=== PATIENT | male | born 1930 | race Caucasian/White ===

== ENCOUNTER → 2016-05-15 | Outpatient (REF) | payer MEDICARE ==
[~2016-05-15] MED LIST: /TAMS4CA; CARV3.12 PO; DEMA20TA; FURO40TA2 PO; LISI-542 PO; PLAV75TA PO; RANI300T PO; SIMV40TA2 PO; SPIR25TA2 PO; TENO25TA; THERGRAN; VICO5TAB; ZOCO40TA
== END | disposition home or self-care (01) ==
LOC: M LABDRWAD 12:22
PROVIDERS: ATTEND Nurse Practitioner Family
DX: I10 Essential (primary) hypertension (principal); N39.0 Urinary tract infection, site not specified

== ENCOUNTER → 2016-05-30 | Outpatient (REF) | payer MEDICARE ==
[~2016-05-30] MED LIST changes: -PLAV75TA PO; +PLAV75TA38 PO
[2016-05-30 13:01] LABS: CALCIUM LEVEL 8.7 MG/DL (8.8-10.2); CREATININE FOR GFR 2.57 MG/DL (0.70-1.30); GLOMERULAR FILTRATION RATE 25.3 (>35)
== END | disposition home or self-care (01) ==
LOC: M LABDRWAD 12:10
PROVIDERS: ATTEND Nurse Practitioner Family
DX: I10 Essential (primary) hypertension (principal)

== ENCOUNTER → 2016-06-06 | Outpatient (REF) | payer MEDICARE ==
[2016-06-06 21:09] LABS: CALCIUM LEVEL 8.9 MG/DL (8.8-10.2); CREATININE FOR GFR 2.06 MG/DL (0.70-1.30); GLOMERULAR FILTRATION RATE 32.6 (>35); POTASSIUM SERUM 5.1 MEQ/L (3.5-5.1)
== END | disposition home or self-care (01) ==
LOC: M LABDRWAD 20:34
PROVIDERS: ATTEND Nurse Practitioner Family
DX: I10 Essential (primary) hypertension (principal)

== ENCOUNTER → 2016-06-27 | Outpatient (REF) | payer MEDICARE ==
[2016-06-27 20:28] LABS: CALCIUM LEVEL 8.4 MG/DL (8.8-10.2); CREATININE FOR GFR 1.57 MG/DL (0.70-1.30); GLOMERULAR FILTRATION RATE 44.6 (>35); POTASSIUM SERUM 4.2 MEQ/L (3.5-5.1)
== END ==
LOC: M LABDRWAD 09:02
PROVIDERS: ATTEND Nurse Practitioner Family
DX: I10 Essential (primary) hypertension (principal)

== ENCOUNTER → 2016-08-22 | Outpatient (REF) | payer MEDICARE ==
[2016-08-22 13:00] LABS: BASO % 0.7 % (0.0-1.0); EOS # 0.2 K/mm3 (0.0-0.50); EOS % 4.7 % (0.0-3.0); LARGE UNSTAINED CELL # 0.2 K/mm3 (0.0-0.4); LARGE UNSTAINED CELL % 3.5 % (0.0-4.0); LYMPH # 0.9 K/mm3 (1.5-4.5); LYMPH % 13.1 % (24.0-44.0); MEAN CORPUSCULAR HEMOGLOBIN 31.6 pg (27.0-33.0); MEAN CORPUSCULAR HGB CONC 32.7 g/dl (32.0-36.5); MEAN CORPUSCULAR VOLUME 96.5 fl (80.0-96.0); MONO # 0.4 K/mm3 (0.0-0.8); MONO % 8.2 % (0.0-5.0); NEUTROPHILS # 3.7 K/mm3 (1.8-7.7); NEUTROPHILS % 69.8 % (36.0-66.0); PLATELET COUNT, AUTOMATED 202 k/mm3 (150-450); RED CELL DISTRIBUTION WIDTH 13.4 % (11.5-14.5); WHITE BLOOD COUNT 5.4 K/mm3 (4.0-10.0)
[2016-08-22 13:14] LABS: CREATININE FOR GFR 1.53 MG/DL (0.70-1.30); POTASSIUM SERUM 4.7 MEQ/L (3.5-5.1)
[2016-08-23 14:26] LABS: PSA TOTAL 1.1 ng/mL (0.0-4.0)
== END ==
LOC: M LABDRWAD 12:28
PROVIDERS: ATTEND Nurse Practitioner Family
DX: I10 Essential (primary) hypertension (principal); R97.20 Elevated prostate specific antigen [PSA]

== ENCOUNTER 2016-10-03 02:36 | Inpatient (IN) | payer MEDICARE ==
[2016-10-03] VITALS (18 sets, daily range): BP systolic 70–124; BP diastolic 45–77
[~2016-10-03] VITALS: Ht 170.2 cm; Wt 90.8 kg
[2016-10-03] MEDS ORDERED: ACETAMINOPHEN TAB 650MG DOSE (2X325MG) PO ONE (03:45)
[2016-10-03 03:48] LABS: BASO % 0.4 % (0.0-1.0); EOS # 0.2 K/mm3 (0.0-0.50); EOS % 1.9 % (0.0-3.0); LARGE UNSTAINED CELL # 0.1 K/mm3 (0.0-0.4); LARGE UNSTAINED CELL % 0.7 % (0.0-4.0); LYMPH # 0.4 K/mm3 (1.5-4.5); LYMPH % 4.5 % (24.0-44.0); MEAN CORPUSCULAR HEMOGLOBIN 31.7 pg (27.0-33.0); MEAN CORPUSCULAR HGB CONC 32.4 g/dl (32.0-36.5); MEAN CORPUSCULAR VOLUME 97.9 fl (80.0-96.0); MONO # 0.3 K/mm3 (0.0-0.8); MONO % 4.2 % (0.0-5.0); NEUTROPHILS # 7.3 K/mm3 (1.8-7.7); NEUTROPHILS % 88.3 % (36.0-66.0); PLATELET COUNT, AUTOMATED 186 k/mm3 (150-450); RED CELL DISTRIBUTION WIDTH 12.7 % (11.5-14.5); WHITE BLOOD COUNT 8.2 K/mm3 (4.0-10.0)
[2016-10-03 03:49] LABS: VENOUS BASE EXCESS 1.2 (-2.0-2.0); VENOUS O2 SATURATION 50.2 % (60.0-80.0); VENOUS PARTIAL PRESSURE CO2 49.5 mmHg (38.0-50.0); VENOUS PARTIAL PRESSURE O2 27.8 mmHg (30.0-50.0); VENOUS STANDARD HCO3 24.6 MEQ/L; VENOUS TOTAL CO2 28.7 MEQ/L (24.0-28.0)
[2016-10-03 04:04] LABS: ALBUMIN 3.5 GM/DL (3.2-5.2); BILIRUBIN,DIRECT 0.1 MG/DL (0.0-0.2); BILIRUBIN,TOTAL 0.3 MG/DL (0.2-1.0); CALCIUM LEVEL 8.3 MG/DL (8.8-10.2); CREATININE FOR GFR 1.44 MG/DL (0.70-1.30); GLOMERULAR FILTRATION RATE 49.3 (>35); POTASSIUM SERUM 4.7 MEQ/L (3.5-5.1)
[2016-10-03] MEDS ORDERED: PIPERACILLIN/TAZOBACTAM SOD 3.375 GM in D5W MINI-BAG PLUS 50 ML IV ONE (04:15)
[2016-10-03] MEDS ORDERED: ASPIRIN 325 MG TAB PO ONE (06:30)
--- NOTE | 2016-10-03 07:21 | HPE ---
DATE OF ADMISSION: 10/03/2016 PRIMARY CARE PROVIDER: FRANDY Hinojosa REASON FOR ADMISSION: Urinary tract infection (UTI), sepsis. HISTORY OF PRESENT ILLNESS: Patient is an 86-year-old male with past medical history significant for history of urinary tract infections, bladder cancer, presented to the emergency room with his daughter after he called her around 2:00 a.m. stating he felt cold, shaky and short of breath. Upon presentation, patient was found to have a fever as high as 103.5. Per the daughter, patient has history of urinary tract infections and he is usually aware that he has a urinary tract infection. He stated he has not been taking his Lasix because he stated it has been making him urinate frequently, but once she came to see him he was not short of breath but he was shaking and had a fever. She brought him into the emergency room. She also noted that he had a cut on his left leg that he had failed to tell her about. Patient denies any other symptoms at this time. Denies any chest pain. Denies any cough, nausea or vomiting. Denies any diarrhea. Denies any incontinence but does complain of urinary frequency. Patient is alert and oriented to place and self but not to time. Per the daughter, patient is normally awake, alert, oriented times three, lives independently and drives. REVIEW OF SYSTEMS: 12-point review of system was obtained, all which was negative except for those mentioned above. PAST MEDICAL HISTORY: Significant for history of urinary tract infection, bladder cancer, cardiac stents, CAD, hypertension, hyperlipidemia, congestive heart failure, sleep apnea on continuous positive airway pressure (CPAP), gastroesophageal reflux disease (GERD), history of colon cancer and left lymphedema. PAST SURGICAL HISTORY: Significant for hernia repair, partial colectomy and bladder cancer. ALLERGIES: None. SOCIAL HISTORY: Patient used to smoke but quit 40 years ago. Lives alone. Denies any alcohol use. FAMILY HISTORY: Noncontributory. HOME MEDICATIONS: Include: - carvedilol 3.125 mg by mouth twice a day - Plavix 75 mg by mouth daily - Lasix 40 mg by mouth daily - ranitidine one tablet by mouth at bedtime - simvastatin 40 mg at bedtime - spironolactone 12.5 mg by mouth daily PHYSICAL FINDINGS: Vital signs on admission: Temperature 103.5, heart rate 106, blood pressure is 121/55, pulse oximetry 94% on room air. HEENT: Pupils equal, round, reactive to light and accommodation. Neck: Supple. No jugular venous distention (JVD). Lungs: Clear to auscultation (CTA) bilaterally. Abdomen: Obese, soft, nontender, nondistended. Extremities: Swelling over the left lower extremity with an open sore non-draining at this time. Neurologic: Cranial nerves II-XII grossly intact. LABORATORY FINDINGS: WBC 8.2, hemoglobin 10.7, hematocrit 33, platelet count 186. Sodium 144, potassium 4.7, chloride 108, BUN 24, creatinine 1.44, fasting glucose 100, lactic acid 1, AST 16, ALT 17, alkaline phosphatase 125, BNP 88. Blood gas 7.3 pH. Urinalysis appeared turbid with 1+ blood, positive nitrates, too many to count WBCs, 3+ bacteria, 3+ leukocyte esterase. ASSESSMENT AND PLAN: 1. Sepsis secondary to urinary tract infection, abnormal urinalysis (UA). Patient received one dose of Zosyn in the emergency room. We will resume Zosyn. Await urine culture. Vitals are currently stable. Patient is tachycardiac with a fever as high as 103.5. Blood cultures times two sets have also been ordered in the emergency room. Lactic acid was negative. Will continue to monitor. 2. History of coronary artery disease. We will hold patient's antihypertensive medications at this time due to sepsis. We will continue to monitor. 3. Hypertension. We will hold patient's medication. 4. Hyperlipidemia. We will continue patient's simvastatin 40 mg by mouth daily. 5. History of congestive heart failure. Patient has been noncompliant with his Lasix and spironolactone stating he has been urinating frequently, which is likely secondary to urinary tract infection. We will not continue Lasix and spironolactone at this time due to hypotension secondary to sepsis. We will hold off on IV fluids as well. We will continue patient's diuretics when he is more hemodynamically stable. 6. History of sleep apnea. Will continue patient on CPAP, currently does not have his home CPAP machine and we will provide one from the hospital. 7. History of lymphedema on the left. Per daughter, patient always has left lower extremity swelling but has gotten progressively worse since he has not been taking his diuretics. 8. Lower extremity sore and ulceration. Per daughter, patient had a fall recently and had cut his leg but did not mention it to her. 9. Deep venous thrombosis (DVT) prophylaxis. Lovenox renal dose subcutaneously daily.
[2016-10-03] MEDS ORDERED: CEFTAROLINE FOSAMIL 600 MG in D5W MINI-BAG PLUS 50 ML IV SCH (07:45)
--- NOTE | 2016-10-03 07:51 | REP ---
Clinical: S I R S. Comparison: 11/26/2014. Findings: Mediastinum and cardiac silhouette are stable with cardiomegaly again suggested. Diffuse chronic interstitial changes are appreciated. Subtle superimposed atelectasis and/or vascular congestion cannot be excluded. No effusion. No pneumothorax. Skeletal structures intact. Impression: Limited portable examination demonstrates chronic stable changes. Subtle superimposed process cannot be excluded. Signed by Jerry Villasenor MD 10/03/2016 07:43 A
[2016-10-03 09:25] LABS: MEAN CORPUSCULAR HGB CONC 34.2 g/dl (32.0-36.5); MEAN CORPUSCULAR VOLUME 96.5 fl (80.0-96.0); PLATELET COUNT, AUTOMATED 184 k/mm3 (150-450); RED CELL DISTRIBUTION WIDTH 12.9 % (11.5-14.5); WHITE BLOOD COUNT 13.8 K/mm3 (4.0-10.0)
[2016-10-03] MEDS ORDERED: SODIUM CHLORIDE 0.9% 1000 ML IV ONE (09:45)
[2016-10-03] MEDS: CLOPIDOGREL 75 MG TAB PO SCH (09:50)
[2016-10-03] MEDS: ENOXAPARIN 30 MG/0.3 ML SYR (J1650) SC SCH (09:50)
[2016-10-03 09:51] LABS: ALBUMIN 3.4 GM/DL (3.2-5.2); ALBUMIN/GLOBULIN RATIO 1.06 (1.00-1.93); BANDS 2 % (< 11); BILIRUBIN,TOTAL 0.6 MG/DL (0.2-1.0); CALCIUM LEVEL 8.6 MG/DL (8.8-10.2); CREATININE FOR GFR 1.61 MG/DL (0.70-1.30); GLOMERULAR FILTRATION RATE 43.3 (>35); POTASSIUM SERUM 3.9 MEQ/L (3.5-5.1); TOTAL PROTEIN 6.6 GM/DL (6.4-8.2)
[2016-10-03] MEDS: NS 1,000 ML IV SCH (09:52)
[2016-10-03] MEDS ORDERED: CEFTAROLINE FOSAMIL 400 MG in D5W MINI-BAG PLUS 50 ML IV SCH (10:00)
[2016-10-03] MEDS: PIPERACILLIN/TAZOBACTAM SOD 3.375 GM in D5W MINI-BAG PLUS 50 ML IV SCH ×2 (12:00→20:43)
--- NOTE | 2016-10-03 12:53 | REP ---
Clinical: Edema . Technique: Yung scale and color Doppler evaluation using linear high frequency transducer. Findings: Ultrasound examination of the left lower extremity deep venous structures from the common femoral vein to the popliteal vein demonstrates normal compressibility flow and wave patterns in response to respiration and augmentation. There is no evidence for deep venous thrombosis. Subcutaneous edema is appreciated along with left inguinal lymph node measuring 19 x 12 x 18 mm and small subcutaneous fluid collection in the posterior knee measuring 9 x 6 x 6 mm. A Akbar's cyst measuring 6.3 x 1.9 x 3.1 cm is identified in the popliteal fossa. Impression: 1. No evidence for deep venous thrombosis. 2. Subcutaneous edema and small superficial fluid collection measuring 9 x 6 x 6 mm. 3. Akbar's cyst measuring 6.3 x 1.9 x 3.1 cm. Signed by Jerry Villasenor MD 10/03/2016 12:45 P
[2016-10-03] MEDS: ACETAMINOPHEN TAB 650MG DOSE (2X325MG) PO PRN (15:40)
--- NOTE | 2016-10-03 16:42 | PHACANCOPD ---
PHARMACY VANCOMYCIN DOSING Pt Demographics Demographics Patient Age:86 , Weight:92.900 , Gender: male Adjusted Body Weight Events Past 24 Hours Events Past 24 Hours: NO: Dialysis, Diuretic Therapy, Change in CrCl, Fever, Elevation in WBC, Pending Diagnostics, Pending Procedures, Other Vancomycin Vancomycin Target Ranges: 15-20 mcg/ml Vancomycin Load Y/N: Yes Load Dose Date Time Vancomycin Load Dose: 1.5G Date: 10/03/16 Time: 17:00 Vancomycin Dose Date: 10/04/16. Current Vancomycin Dose: [1GM IV Q24H (8AM)] Intermittent Dosing?: No Labs Labs Laboratory Tests 10/03/16 08:46 Red Blood Count 3.26 L, Mean Corpuscular Volume 96.5 H, Mean Corpuscular Hemoglobin 33.0, Mean Corpuscular Hemoglobin Concent 34.2, Red Cell Distribution Width 12.9, Calcium Level 8.6 L, Aspartate Amino Transf (AST/SGOT) 14 L, Alanine Aminotransferase (ALT/SGPT) 16, Alkaline Phosphatase 98, Total Bilirubin 0.6 #, Total Protein 6.6, Albumin 3.4 Micro Microbiology 10/03/16 Blood Culture, Received Pending 10/03/16 Blood Culture - Preliminary, Resulted 10/03/16 Urine Culture, Received Pending Creatinine Clearance Date:10/03/16. Creatinine Clearance: [40ml/min]. Assessment and Plan Maintaining Current Dose?: Yes Reason for dose change: No Dose Change Pharmacist Note Pharmacist Note Date: 10/03/16. Pharm.D. note: 86YO MALE, 92KG in WEIGHT, 67" in HEIGHT ADMITTED WITH UROSEPSIS. C&S PRELIM INDICATES GRAM + cocci in CHAINS. CURRENTLY ON ZOSYN 3.375GM IV Q8H 12N 20:00 & 04:00. WE WILL GIVE HIM A VANCO 1.5GM LOAD AT 17:00 TODAY FOLLOWED BY 1GM VANCO IV Q24H STARTING 8AM 10/04/16. A VANCO TROUGH WILL BE ORDERED WHEN HE IS AT STEADY STATE. MISTI, Pharm.D. [facility] October 03, 2016 16:42
[2016-10-03] MEDS ORDERED: VANCOMYCIN HCL 1,000 MG, VIAL MATE ADAPTER 1 EACH in D5W 250 ML IV ONE (17:00)
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
[2016-10-03] MEDS ORDERED: VANCOMYCIN HCL 500 MG in D5W MINI-BAG PLUS 100 ML IV ONE (18:00)
[2016-10-03] MEDS: SIMVASTATIN 40 MG TAB PO SCH (20:44)
[2016-10-04] VITALS (24 sets, daily range): BP systolic 95–168; BP diastolic 52–79
[2016-10-04] MEDS: ACETAMINOPHEN TAB 650MG DOSE (2X325MG) PO PRN ×2 (01:44→19:34)
[2016-10-04 04:48] LABS: MEAN CORPUSCULAR HEMOGLOBIN 32.3 pg (27.0-33.0); MEAN CORPUSCULAR HGB CONC 33.2 g/dl (32.0-36.5); MEAN CORPUSCULAR VOLUME 97.2 fl (80.0-96.0); RED CELL DISTRIBUTION WIDTH 13.4 % (11.5-14.5); WHITE BLOOD COUNT 10.6 K/mm3 (4.0-10.0)
[2016-10-04] MEDS: PIPERACILLIN/TAZOBACTAM SOD 3.375 GM in D5W MINI-BAG PLUS 50 ML IV SCH ×3 (04:55→19:34)
[2016-10-04] MEDS: NS 1,000 ML IV SCH (04:55)
[2016-10-04 05:14] LABS: BILIRUBIN,TOTAL 0.5 MG/DL (0.2-1.0); CALCIUM LEVEL 7.9 MG/DL (8.8-10.2); CREATININE FOR GFR 1.81 MG/DL (0.70-1.30); GLOMERULAR FILTRATION RATE 37.9 (>35); POTASSIUM SERUM 3.9 MEQ/L (3.5-5.1); TOTAL PROTEIN 5.7 GM/DL (6.4-8.2)
[2016-10-04 05:34] LABS: ALBUMIN/GLOBULIN RATIO 0.78 (1.00-1.93)
[2016-10-04 05:35] LABS: ALBUMIN 2.5 GM/DL (3.2-5.2)
[2016-10-04] MEDS ORDERED: VANCOMYCIN HCL 1,000 MG, VIAL MATE ADAPTER 1 EACH in D5W 250 ML IV SCH (08:00)
[2016-10-04] MEDS: ENOXAPARIN 30 MG/0.3 ML SYR (J1650) SC SCH (08:36)
[2016-10-04] MEDS: CLOPIDOGREL 75 MG TAB PO SCH (08:36)
--- NOTE | 2016-10-04 09:54 | PHACANCOPD ---
PHARMACY VANCOMYCIN DOSING Pt Demographics Demographics Patient Age:86 , Weight:95.500 , Gender: male Adjusted Body Weight Vancomycin Vancomycin Target Ranges: 15-20 mcg/ml Vancomycin Load Y/N: Yes Load Dose Date Time Vancomycin Load Dose: 1.5G Date: 10/03/16 Time: 17:00 Vancomycin Dose Date: 10/04/16. Current Vancomycin Dose: [1GM IV Q24H (8AM)] Intermittent Dosing?: No Labs Micro Microbiology 10/03/16 Blood Culture - Preliminary, Resulted 10/03/16 Blood Culture - Preliminary, Resulted 10/03/16 Urine Culture, Received Pending Creatinine Clearance Date:10/03/16. Creatinine Clearance: [40ml/min]. Assessment and Plan Maintaining Current Dose?: Yes Reason for dose change: No Dose Change Pharmacist Note Pharmacist Note 10/04/16: Scr today is 1.81. We will continue to maintain the current regimen of 1g IV Q24H. A vancomycin trough has been scheduled 10/06/16 @0700. We will continue to monitor and make adjustments accordingly. Date: 10/03/16. Pharm.D. note: 86YO MALE, 92KG in WEIGHT, 67" in HEIGHT ADMITTED WITH UROSEPSIS. C&S PRELIM INDICATES GRAM + cocci in CHAINS. CURRENTLY ON ZOSYN 3.375GM IV Q8H 12N 20:00 & 04:00. WE WILL GIVE HIM A VANCO 1.5GM LOAD AT 17:00 TODAY FOLLOWED BY 1GM VANCO IV Q24H STARTING 8AM 10/04/16. A VANCO TROUGH WILL BE ORDERED WHEN HE IS AT STEADY STATE. MISTI, Pharm.D. [facility] October 04, 2016 09:54
--- NOTE | 2016-10-04 14:49 | REP ---
Clinical: Trauma. Technique: Real time saul scale ultrasound examination using curved array transducer. Comparison: CT dated 06/23/2009. Findings: The bilateral kidneys demonstrate numerous cysts but are otherwise essentially normal in contour, size, echogenicity and overall reniform shape. There is no evidence for hydronephrosis, nephrolithiasis or mass lesion. No perinephric fluid collection is appreciated and there is no evidence for renal injury. Right kidney measures 11.0 x 5.6 x 6.3 cm and includes mid pole cyst measuring 2.1 cm maximal diameter and lower pole cyst measuring 5.5 cm maximal diameter. Left kidney measures 12.1 x 4.6 x 5.8 cm and includes lateral mid pole cyst measuring 3.7 cm maximal diameter and lower pole cyst measuring 1.0 cm maximal diameter. Bladder is grossly unremarkable with small amount of layering debris noted. Impression: Kidneys demonstrate few scattered bilateral cysts without evidence for renal trauma. Signed by Jerry Villasenor MD 10/04/2016 02:40 P
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
[2016-10-04] MEDS: SIMVASTATIN 40 MG TAB PO SCH (20:19)
[2016-10-05] VITALS: BP 129/67
[2016-10-05 04:00] VITALS: BP 121/56
[2016-10-05] MEDS: PIPERACILLIN/TAZOBACTAM SOD 3.375 GM in D5W MINI-BAG PLUS 50 ML IV SCH (04:48)
[2016-10-05 05:38] LABS: MEAN CORPUSCULAR HEMOGLOBIN 32.3 pg (27.0-33.0); MEAN CORPUSCULAR HGB CONC 33.5 g/dl (32.0-36.5); MEAN CORPUSCULAR VOLUME 96.6 fl (80.0-96.0); WHITE BLOOD COUNT 11.4 K/mm3 (4.0-10.0)
[2016-10-05 05:54] LABS: ALBUMIN 2.4 GM/DL (3.2-5.2); ALBUMIN/GLOBULIN RATIO 0.69 (1.00-1.93); BILIRUBIN,TOTAL 0.5 MG/DL (0.2-1.0); CALCIUM LEVEL 8.2 MG/DL (8.8-10.2); CREATININE FOR GFR 1.45 MG/DL (0.70-1.30); GLOMERULAR FILTRATION RATE 48.9 (>35); TOTAL PROTEIN 5.9 GM/DL (6.4-8.2)
[2016-10-05 07:40] VITALS: BP 138/73
[2016-10-05] MEDS: cefTRIAXone SOD 2 GM in D5W MINI-BAG PLUS 50 ML IV SCH ×2 (08:21→19:41)
[2016-10-05] MEDS: CLOPIDOGREL 75 MG TAB PO SCH (08:21)
[2016-10-05] MEDS: ENOXAPARIN 30 MG/0.3 ML SYR (J1650) SC SCH (08:22)
[2016-10-05 12:00] VITALS: BP 152/68
[2016-10-05 16:00] VITALS: BP 119/80
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
[2016-10-05 20:10] VITALS: BP 133/59
[2016-10-05] MEDS: SIMVASTATIN 40 MG TAB PO SCH (20:25)
[2016-10-05] MEDS: ACETAMINOPHEN TAB 650MG DOSE (2X325MG) PO PRN (20:27)
[2016-10-06] VITALS (7 sets, daily range): BP systolic 121–163; BP diastolic 58–79
[2016-10-06 07:11] LABS: MEAN CORPUSCULAR HEMOGLOBIN 32.2 pg (27.0-33.0); MEAN CORPUSCULAR HGB CONC 33.4 g/dl (32.0-36.5); MEAN CORPUSCULAR VOLUME 96.3 fl (80.0-96.0); RED CELL DISTRIBUTION WIDTH 13.2 % (11.5-14.5); WHITE BLOOD COUNT 7.3 K/mm3 (4.0-10.0)
[2016-10-06 07:47] LABS: ALBUMIN 2.2 GM/DL (3.2-5.2); ALBUMIN/GLOBULIN RATIO 0.76 (1.00-1.93); ALKALINE PHOSPHATASE 71 U/L (45-117); ALT/SGPT 24 U/L (12-78); ANION GAP 7 MEQ/L (8-16); AST/SGOT 24 U/L (15-37); BILIRUBIN,TOTAL 0.3 MG/DL (0.2-1.0); BLOOD UREA NITROGEN 22 MG/DL (7-18); CALCIUM LEVEL 7.6 MG/DL (8.8-10.2); CARBON DIOXIDE LEVEL 26 MEQ/L (21-32); CHLORIDE LEVEL 104 MEQ/L (98-107); CREATININE FOR GFR 1.07 MG/DL (0.70-1.30); GLOMERULAR FILTRATION RATE > 60.0 (>35); GLUCOSE, FASTING 104 MG/DL (83-110); POTASSIUM SERUM 3.6 MEQ/L (3.5-5.1); SODIUM LEVEL 137 MEQ/L (136-145); TOTAL PROTEIN 5.1 GM/DL (6.4-8.2)
[2016-10-06 08:48] LABS: ABG BASE EXCESS -0.5 (-2.0-2.0); ABG HCO3 23.3 MEQ/L (22.0-26.0); ABG PARTIAL PRESSURE CO2 34.7 mmHg (35.0-45.0); ABG PARTIAL PRESSURE O2 76.9 mmHg (75.0-100.0); ABG TOTAL CO2 24.3 MEQ/L (23.0-31.0); ABG pH (ARTERIAL) 7.444 UNITS (7.350-7.450)
[2016-10-06] MEDS: CLOPIDOGREL 75 MG TAB PO SCH (09:15)
[2016-10-06] MEDS: cefTRIAXone SOD 2 GM in D5W MINI-BAG PLUS 50 ML IV SCH ×2 (09:16→19:58)
[2016-10-06] MEDS: ENOXAPARIN 30 MG/0.3 ML SYR (J1650) SC SCH (09:16)
[2016-10-06] MEDS: ACETAMINOPHEN TAB 650MG DOSE (2X325MG) PO PRN (21:05)
[2016-10-06] MEDS: SIMVASTATIN 40 MG TAB PO SCH (21:05)
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
[2016-10-07 02:00] VITALS: BP 139/67
[2016-10-07 06:00] VITALS: BP 143/68
[2016-10-07 06:12] LABS: MEAN CORPUSCULAR HEMOGLOBIN 31.5 pg (27.0-33.0); MEAN CORPUSCULAR HGB CONC 32.5 g/dl (32.0-36.5); RED CELL DISTRIBUTION WIDTH 12.7 % (11.5-14.5); WHITE BLOOD COUNT 6.2 K/mm3 (4.0-10.0)
[2016-10-07 06:17] LABS: ALBUMIN 2.2 GM/DL (3.2-5.2); ALBUMIN/GLOBULIN RATIO 0.61 (1.00-1.93); ALKALINE PHOSPHATASE 85 U/L (45-117); ALT/SGPT 37 U/L (12-78); ANION GAP 4 MEQ/L (8-16); AST/SGOT 31 U/L (15-37); BILIRUBIN,TOTAL 0.2 MG/DL (0.2-1.0); BLOOD UREA NITROGEN 17 MG/DL (7-18); CALCIUM LEVEL 7.9 MG/DL (8.8-10.2); CARBON DIOXIDE LEVEL 29 MEQ/L (21-32); CHLORIDE LEVEL 106 MEQ/L (98-107); CREATININE FOR GFR 1.02 MG/DL (0.70-1.30); GLOMERULAR FILTRATION RATE > 60.0 (>35); GLUCOSE, FASTING 96 MG/DL (83-110); POTASSIUM SERUM 3.8 MEQ/L (3.5-5.1); SODIUM LEVEL 139 MEQ/L (136-145); TOTAL PROTEIN 5.8 GM/DL (6.4-8.2)
[2016-10-07] MEDS: ENOXAPARIN 30 MG/0.3 ML SYR (J1650) SC SCH (08:24)
[2016-10-07] MEDS: CLOPIDOGREL 75 MG TAB PO SCH (08:24)
[2016-10-07] MEDS: cefTRIAXone SOD 2 GM in D5W MINI-BAG PLUS 50 ML IV SCH ×2 (08:24→20:52)
[2016-10-07 10:00] VITALS: BP 157/75
[2016-10-07 14:00] VITALS: BP 138/75
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
[2016-10-07 18:00] VITALS: BP 146/65
[2016-10-07] MEDS: SIMVASTATIN 40 MG TAB PO SCH (20:52)
[2016-10-07 22:00] VITALS: BP 139/68
[2016-10-08 02:00] VITALS: BP 149/70
[2016-10-08 06:00] VITALS: BP 140/80
[2016-10-08 06:05] LABS: MEAN CORPUSCULAR HEMOGLOBIN 32.2 pg (27.0-33.0); MEAN CORPUSCULAR HGB CONC 33.4 g/dl (32.0-36.5); MEAN CORPUSCULAR VOLUME 96.3 fl (80.0-96.0); RED CELL DISTRIBUTION WIDTH 12.8 % (11.5-14.5); WHITE BLOOD COUNT 7.3 K/mm3 (4.0-10.0)
[2016-10-08 06:27] LABS: ALBUMIN 2.3 GM/DL (3.2-5.2); ALBUMIN/GLOBULIN RATIO 0.61 (1.00-1.93); ALKALINE PHOSPHATASE 95 U/L (45-117); ALT/SGPT 38 U/L (12-78); ANION GAP 7 MEQ/L (8-16); AST/SGOT 26 U/L (15-37); BILIRUBIN,TOTAL 0.2 MG/DL (0.2-1.0); BLOOD UREA NITROGEN 14 MG/DL (7-18); CALCIUM LEVEL 8.3 MG/DL (8.8-10.2); CARBON DIOXIDE LEVEL 27 MEQ/L (21-32); CHLORIDE LEVEL 105 MEQ/L (98-107); CREATININE FOR GFR 0.94 MG/DL (0.70-1.30); GLOMERULAR FILTRATION RATE > 60.0 (>35); GLUCOSE, FASTING 96 MG/DL (83-110); POTASSIUM SERUM 3.8 MEQ/L (3.5-5.1); SODIUM LEVEL 139 MEQ/L (136-145); TOTAL PROTEIN 6.1 GM/DL (6.4-8.2)
[2016-10-08] MEDS: CLOPIDOGREL 75 MG TAB PO SCH (08:29)
[2016-10-08] MEDS: cefTRIAXone SOD 2 GM in D5W MINI-BAG PLUS 50 ML IV SCH ×2 (08:29→20:01)
[2016-10-08 10:00] VITALS: BP 141/65
[2016-10-08] MEDS: ENOXAPARIN 30 MG/0.3 ML SYR (J1650) SC SCH (11:10)
[2016-10-08] MEDS: FUROSEMIDE 40 MG TAB PO SCH (11:10)
[2016-10-08] MEDS: SPIRONOLACTONE 12.5MG PER 1/2 TABLET PO SCH (11:10)
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
[2016-10-08 14:00] VITALS: BP 129/74
[2016-10-08 18:00] VITALS: BP 130/80
[2016-10-08] MEDS: SIMVASTATIN 40 MG TAB PO SCH (20:01)
[2016-10-08 22:00] VITALS: BP 139/68
[2016-10-09 02:00] VITALS: BP 146/79
[2016-10-09 05:39] LABS: MEAN CORPUSCULAR HEMOGLOBIN 32.2 pg (27.0-33.0); MEAN CORPUSCULAR HGB CONC 33.4 g/dl (32.0-36.5); MEAN CORPUSCULAR VOLUME 96.4 fl (80.0-96.0); RED CELL DISTRIBUTION WIDTH 13.1 % (11.5-14.5); WHITE BLOOD COUNT 8.7 K/mm3 (4.0-10.0)
[2016-10-09 05:52] LABS: ALBUMIN 2.5 GM/DL (3.2-5.2); ALBUMIN/GLOBULIN RATIO 0.61 (1.00-1.93); ALKALINE PHOSPHATASE 104 U/L (45-117); ALT/SGPT 38 U/L (12-78); ANION GAP 5 MEQ/L (8-16); AST/SGOT 21 U/L (15-37); BILIRUBIN,TOTAL 0.3 MG/DL (0.2-1.0); BLOOD UREA NITROGEN 14 MG/DL (7-18); CALCIUM LEVEL 8.5 MG/DL (8.8-10.2); CARBON DIOXIDE LEVEL 29 MEQ/L (21-32); CHLORIDE LEVEL 104 MEQ/L (98-107); GLOMERULAR FILTRATION RATE > 60.0 (>35); GLUCOSE, FASTING 93 MG/DL (83-110); POTASSIUM SERUM 3.9 MEQ/L (3.5-5.1); SODIUM LEVEL 138 MEQ/L (136-145); TOTAL PROTEIN 6.6 GM/DL (6.4-8.2)
[2016-10-09 06:00] VITALS: BP 148/73
[2016-10-09] MEDS: SPIRONOLACTONE 12.5MG PER 1/2 TABLET PO SCH (09:14)
[2016-10-09] MEDS: cefTRIAXone SOD 2 GM in D5W MINI-BAG PLUS 50 ML IV SCH ×2 (09:14→20:05)
[2016-10-09] MEDS: CLOPIDOGREL 75 MG TAB PO SCH (09:14)
[2016-10-09] MEDS: ENOXAPARIN 30 MG/0.3 ML SYR (J1650) SC SCH (09:14)
[2016-10-09] MEDS: FUROSEMIDE 40 MG TAB PO SCH (09:14)
--- NOTE | 2016-10-09 09:48 | REP ---
Bilateral lower extremity Duplex Doppler venous ultrasound: Real time compression and duplex Doppler interrogation of the bilateral lower extremity deep venous system is performed. Bilaterally, the common femoral, superficial femoral and popliteal veins are fully compressible with transducer pressure and demonstrate normal spontaneous and phasic flow, without evidence of deep venous thrombosis. Impression: No evidence of deep venous thrombosis of the bilateral lower extremity femoral popliteal venous system. There is a left popliteal cyst measuring 8.5 x 1.5 x 3.6 cm. There is a mildly enlarged left inguinal lymph node with short axis dimension 1.3 cm. Signed by Marco A Yung MD 10/09/2016 09:40 A
[2016-10-09 10:00] VITALS: BP 162/77
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
[2016-10-09 14:00] VITALS: BP 139/75
[2016-10-09 18:00] VITALS: BP 130/68
[2016-10-09] MEDS: SIMVASTATIN 40 MG TAB PO SCH (20:05)
[2016-10-09 22:00] VITALS: BP 134/71
[2016-10-10 02:00] VITALS: BP 133/63
[2016-10-10 05:53] LABS: MEAN CORPUSCULAR HEMOGLOBIN 31.6 pg (27.0-33.0); MEAN CORPUSCULAR HGB CONC 32.6 g/dl (32.0-36.5); MEAN CORPUSCULAR VOLUME 96.7 fl (80.0-96.0); RED CELL DISTRIBUTION WIDTH 12.9 % (11.5-14.5)
[2016-10-10 06:00] VITALS: BP 130/65
[2016-10-10 06:15] LABS: ALBUMIN 2.4 GM/DL (3.2-5.2); ALKALINE PHOSPHATASE 108 U/L (45-117); ALT/SGPT 32 U/L (12-78); ANION GAP 6 MEQ/L (8-16); AST/SGOT 18 U/L (15-37); BILIRUBIN,TOTAL 0.2 MG/DL (0.2-1.0); BLOOD UREA NITROGEN 21 MG/DL (7-18); CALCIUM LEVEL 8.2 MG/DL (8.8-10.2); CARBON DIOXIDE LEVEL 28 MEQ/L (21-32); CHLORIDE LEVEL 103 MEQ/L (98-107); CREATININE FOR GFR 1.03 MG/DL (0.70-1.30); GLOMERULAR FILTRATION RATE > 60.0 (>35); GLUCOSE, FASTING 95 MG/DL (83-110); POTASSIUM SERUM 3.7 MEQ/L (3.5-5.1); SODIUM LEVEL 137 MEQ/L (136-145); TOTAL PROTEIN 6.4 GM/DL (6.4-8.2)
[2016-10-10] MEDS: cefTRIAXone SOD 2 GM in D5W MINI-BAG PLUS 50 ML IV SCH ×2 (08:38→20:24)
[2016-10-10] MEDS: CLOPIDOGREL 75 MG TAB PO SCH (08:39)
[2016-10-10] MEDS: SPIRONOLACTONE 12.5MG PER 1/2 TABLET PO SCH (08:39)
[2016-10-10] MEDS: FUROSEMIDE 40 MG TAB PO SCH (08:39)
[2016-10-10] MEDS: ENOXAPARIN 30 MG/0.3 ML SYR (J1650) SC SCH (08:39)
[2016-10-10 10:00] VITALS: BP 117/59
[2016-10-10 14:00] VITALS: BP 121/37
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
[2016-10-10 18:00] VITALS: BP 134/81
[2016-10-10] MEDS: SIMVASTATIN 40 MG TAB PO SCH (20:24)
[2016-10-10 22:00] VITALS: BP 134/67
--- NOTE | 2016-10-10 23:25 | ECHO ---
DATE OF PROCEDURE: 10/10/2016 REFERRING PHYSICIAN: David Vila MD INDICATION: Heart failure, unspecified. HEIGHT: 170 cm WEIGHT: 93 kg 2D MEASUREMENTS: Aortic root: 4.0 cm Ventricular septum: 1.32 cm Posterior wall: 1.34 cm Left ventricle diastole: 4.5 cm Left atrium: 4.2 cm LVOT: 2.1 cm Inferior vena cava: 1.8 cm DOPPLER MEASUREMENTS: Aortic valve velocity: 226 cm/s Peak aortic valve gradient: 20 mmHg Mean aortic valve gradient: 10 mmHg LVOT velocity: 85.7 cm/s LVOT VTI: 18.5 cm Trace mitral regurgitation. Mitral E velocity: 63.2 cm/s Mitral A velocity: 93.3 cm/s Very mild tricuspid regurgitation. Estimated right ventricle systolic pressure at least 33 mmHg assuming a right atrial pressure of 5 mmHg. Mild pulmonic regurgitation. Pulmonary artery systolic pressure 28 mmHg by pulmonary acceleration time method. MITRAL ANNULAR TISSUE DOPPLER: E prime septal: 4.8 cm/s E prime lateral: 7.1 cm/s DESCRIPTION: Rhythm was sinus with a few premature ventricular contractions (PVCs) observed. Image quality was fair. No pericardial effusion. This is a 2D, M-mode, color flow Doppler and pulse wave Doppler examination that included mitral annular tissue Doppler. CONCLUSIONS: 1. Mild concentric left ventricle hypertrophy. No left ventricle (LV) regional wall motion abnormalities. Normal LV systolic function. Left ventricular ejection fraction (LVEF) of 70% by visual estimate. Grade 1 LV diastolic dysfunction (impaired relaxation filling pattern). 2. Mild dilatation of the aortic root at the level of the sinus of Valsalva. 3. Mild left atrial dilatation. 4. Degenerative, calcified aortic valve disease with severe focal thickening and focal calcific deposits. Mild reduction of mobility of the aortic cusps. Very mild aortic stenosis. No aortic regurgitation. 5. Moderate mitral annular calcification. No mitral stenosis. Trace mitral regurgitation. 6. Suggestive of mild elevation of estimated right ventricle systolic pressure.
[2016-10-11 02:00] VITALS: BP 124/58
[2016-10-11 06:00] VITALS: BP 130/65
[2016-10-11] MEDS: CLOPIDOGREL 75 MG TAB PO SCH (08:18)
[2016-10-11] MEDS: ENOXAPARIN 30 MG/0.3 ML SYR (J1650) SC SCH (08:18)
[2016-10-11] MEDS: cefTRIAXone SOD 2 GM in D5W MINI-BAG PLUS 50 ML IV SCH (08:18)
[2016-10-11] MEDS: FUROSEMIDE 40 MG TAB PO SCH (08:18)
[2016-10-11] MEDS: SPIRONOLACTONE 12.5MG PER 1/2 TABLET PO SCH (08:20)
[2016-10-11 10:00] VITALS: BP 134/65
[2016-10-11] MEDS ORDERED: BACT800T5 PO (11:34)
--- NOTE | 2016-10-11 14:46 | DS.PDOC ---
Discharge Summary General Date of Admission October 03, 2016 at 04:51 Date of Discharge 10/11/16 Attending Physician: LYNN KAMARA MD Discharge Summary PROCEDURES PERFORMED DURING STAY: None. ADMITTING/DISCHARGE DIAGNOSES: 1. Sepsis/Bacteremia from Strep Group C 2. MALENA, resolved. 3. H/o CAD 4. HTN 5. BRIAN on CPAP 6. H/o bladder/colon ca 7. Chronic lymphedema LLE. COMPLICATIONS/CHIEF COMPLAINT: Sepsis & Uti. HISTORY OF PRESENT ILLNESS/HOSPITAL COURSE: . His 78-year-old male past history of chronic lymphedema left lower extremity, BRIAN on CPAP, hypertension, history of CAD presents with erythema of the left lower extremity and found to have sepsis secondary to cellulitis as well as urinary tract infection. Patient also had acute kidney injury which had resolved with the treatment of his sepsis. Patient was also noted to be bacteremic from the sepsis with blood cultures positive for strep group C, and urine culture positive for Escherichia coli both susceptible to Rocephin. Patient had tolerated antibiotics well with improvements of leukocytosis, CRP, as well as erythema of the left lower extremity. Repeat cultures negative. Patient also worked with physical therapy and did well. DISCHARGE MEDICATIONS: Please see below. ALLERGIES: Please see below. PHYSICAL EXAMINATION ON DISCHARGE: Vitals: (see below) General: No acute distress, laying comfortably in bed. HEENT: Moist mucous membranes. Neck: No JVD or lymphadenopathy Cardiac: RRR, No murmurs Pulm: Clear to auscultation b/l. No wheezing, rhonchi Abd: NT/ND + BS Ext: 1+ pitting edema in the left lower extremity below knee with cellulitis that has continued to improving. No cyanosis. Distal pulses intact. Chronic Lymphedema in the left lower extremity, below knee ? related to akbar's cyst LABORATORY DATA: Please see below. IMAGING: Venous U/S LLE 10/03/16 Impression: 1. No evidence for deep venous thrombosis. 2. Subcutaneous edema and small superficial fluid collection measuring 9 x 6 x 6 mm. 3. Akbar's cyst measuring 6.3 x 1.9 x 3.1 cm. Renal u/s 10/03/16 Findings: The bilateral kidneys demonstrate numerous cysts but are otherwise essentially normal in contour, size, echogenicity and overall reniform shape. There is no evidence for hydronephrosis, nephrolithiasis or mass lesion. No perinephric fluid collection is appreciated and there is no evidence for renal injury. Right kidney measures 11.0 x 5.6 x 6.3 cm and includes mid pole cyst measuring 2.1 cm maximal diameter and lower pole cyst measuring 5.5 cm maximal diameter. Left kidney measures 12.1 x 4.6 x 5.8 cm and includes lateral mid pole cyst measuring 3.7 cm maximal diameter and lower pole cyst measuring 1.0 cm maximal diameter. Bladder is grossly unremarkable with small amount of layering debris noted. Impression: Kidneys demonstrate few scattered bilateral cysts without evidence for renal trauma. CXR 10/03/16 Impression: Limited portable examination demonstrates chronic stable changes. Subtle superimposed process cannot be excluded. PROGNOSIS: Fair ACTIVITY: As tolerated. DIET: Low Na diet DISCHARGE PLAN/DISPOSITION: Home, Self-Care. DISCHARGE INSTRUCTIONS: 1. F/u with PCP in 1-2 weeks. May need drainage of the Akbar cyst once cellulitis improves. DISCHARGE CONDITION: Stable. TIME SPENT ON DISCHARGE: Greater than 30 minutes. Vital Signs/I&Os Vital Signs Date Time Temp Pulse Resp B/P (MAP) Pulse Ox O2 Delivery O2 Flow Rate FiO2 10/11/16 10:00 97.9 86 17 134/65 (88) 95 Room Air I&O- Last 24 Hours up to 6 AM 10/11/16 05:59 Intake Total 1540 ml Output Total 2450 ml Balance -910 ml Microbiology Microbiology 10/09/16 Blood Culture - Preliminary, Resulted No Growth after 48 hours. All Specime... 10/09/16 Blood Culture - Preliminary, Resulted No Growth after 48 hours. All Specime... 10/03/16 Blood Culture - Final, Complete Streptococcus Group C 10/03/16 Blood Culture - Final, Complete Streptococcus Group C 10/03/16 Urine Culture - Final, Complete Escherichia Coli Streptococcus Group C Discharge Medications Scheduled Carvedilol (Carvedilol) 3.125 Mg Tab, 3.125 MG PO BID, (Reported) Clopidogrel Bisulfate (Plavix) 75 Mg Tab, 75 MG PO DAILY, (Reported) Furosemide (Furosemide) 40 Mg Tab, 40 MG PO DAILY, (Reported) Ranitidine HCl (Ranitidine HCl) 300 Mg Tab, 1 TAB PO QHS, (Reported) Simvastatin - High Dose (Simvastatin) 40 Mg Tab, 40 MG PO QHS, (Reported) Spironolactone (Spironolactone) 25 Mg Tab, 12.5 MG PO DAILY, (Reported) Trimethoprim/Sulfamethoxazole (Bactrim Ds 800-160 mg) 1 Tab Tab, 1 TAB PO BID Allergies Coded Allergies: No Known Allergies (Verified , 06/11/03) LYNN KAMARA MD Oct 11, 2016 14:46
== END 2016-10-11 12:51 | disposition home or self-care (01) | DRG 872 ==
LOC: EDBD 02:36 → M ED 04:22 → M ED INP 04:51 → M ICU 05:57 → M PCU 10-04 22:59 → M MSPAV 10-06 16:59
PROVIDERS: ADMIT Internal Medicine; ATTEND Internal Medicine
DX: A40.9 Streptococcal sepsis, unspecified (principal); N39.0 Urinary tract infection, site not specified; L97.929 Non-pressure chronic ulcer of unspecified part of left lower leg with unspecified severity; N17.9 Acute kidney failure, unspecified; L03.116 Cellulitis of left lower limb; I50.9 Heart failure, unspecified; I25.10 Atherosclerotic heart disease of native coronary artery without angina pectoris; I11.0 Hypertensive heart disease with heart failure; R65.20 Severe sepsis without septic shock; E66.9 Obesity, unspecified; E78.5 Hyperlipidemia, unspecified; B96.20 Unspecified Escherichia coli [E. coli] as the cause of diseases classified elsewhere; M71.22 Synovial cyst of popliteal space [Baker], left knee; G47.33 Obstructive sleep apnea (adult) (pediatric); R33.9 Retention of urine, unspecified; K21.9 Gastro-esophageal reflux disease without esophagitis; Z95.5 Presence of coronary angioplasty implant and graft; Z85.51 Personal history of malignant neoplasm of bladder; Z85.038 Personal history of other malignant neoplasm of large intestine; Z90.49 Acquired absence of other specified parts of digestive tract; Z79.02 Long term (current) use of antithrombotics/antiplatelets; Z79.899 Other long term (current) drug therapy; Z87.891 Personal history of nicotine dependence; Z68.32 Body mass index [BMI] 32.0-32.9, adult

== ENCOUNTER → 2016-10-22 | Outpatient (REF) | payer MEDICARE ==
[~2016-10-22] MED LIST changes: +BACT800T5 PO
[2016-10-22 21:18] LABS: BASO % 0.5 % (0.0-1.0); EOS # 0.2 K/mm3 (0.0-0.50); EOS % 2.9 % (0.0-3.0); LARGE UNSTAINED CELL # 0.2 K/mm3 (0.0-0.4); LARGE UNSTAINED CELL % 2.5 % (0.0-4.0); LYMPH # 1.5 K/mm3 (1.5-4.5); LYMPH % 15.7 % (24.0-44.0); MEAN CORPUSCULAR HEMOGLOBIN 32.2 pg (27.0-33.0); MEAN CORPUSCULAR HGB CONC 32.8 g/dl (32.0-36.5); MEAN CORPUSCULAR VOLUME 98.2 fl (80.0-96.0); MONO # 0.4 K/mm3 (0.0-0.8); MONO % 4.8 % (0.0-5.0); NEUTROPHILS # 6.3 K/mm3 (1.8-7.7); NEUTROPHILS % 73.6 % (36.0-66.0); PLATELET COUNT, AUTOMATED 295 k/mm3 (150-450); RED CELL DISTRIBUTION WIDTH 13.1 % (11.5-14.5); WHITE BLOOD COUNT 8.5 K/mm3 (4.0-10.0)
[2016-10-22 21:22] LABS: CALCIUM LEVEL 8.9 MG/DL (8.8-10.2); CREATININE FOR GFR 1.95 MG/DL (0.70-1.30); GLOMERULAR FILTRATION RATE 34.7 (>35); POTASSIUM SERUM 4.9 MEQ/L (3.5-5.1)
== END ==
LOC: M LABDRWAD 20:18
PROVIDERS: ATTEND Nurse Practitioner Family
DX: A41.9 Sepsis, unspecified organism (principal); I10 Essential (primary) hypertension

== ENCOUNTER → 2016-11-28 | Outpatient (REF) | payer MEDICARE ==
[~2016-11-28] MED LIST changes: +PLAV1TAB2 PO; -PLAV75TA38 PO
[2016-11-28 22:25] LABS: CALCIUM LEVEL 8.6 MG/DL (8.8-10.2); CREATININE FOR GFR 1.58 MG/DL (0.70-1.30); GLOMERULAR FILTRATION RATE 44.3 (>35)
== END ==
LOC: M LABDRWAD 09:23
PROVIDERS: ATTEND Nurse Practitioner Family
DX: I10 Essential (primary) hypertension (principal)

== ENCOUNTER → 2016-12-24 | Outpatient (REF) | payer MEDICARE ==
[2016-12-24 22:31] LABS: CALCIUM LEVEL 8.7 MG/DL (8.8-10.2); CREATININE FOR GFR 1.39 MG/DL (0.70-1.30); GLOMERULAR FILTRATION RATE 51.3 (>35); POTASSIUM SERUM 4.8 MEQ/L (3.5-5.1)
== END ==
LOC: M LABDRWAD 22:15
PROVIDERS: ATTEND Nurse Practitioner Family
DX: I10 Essential (primary) hypertension (principal)

== ENCOUNTER → 2017-01-28 | Outpatient (REF) | payer MEDICARE ==
[2017-01-28 13:08] LABS: CALCIUM LEVEL 8.9 MG/DL (8.8-10.2); CREATININE FOR GFR 1.32 MG/DL (0.70-1.30); GLOMERULAR FILTRATION RATE 54.4 (>35); POTASSIUM SERUM 4.9 MEQ/L (3.5-5.1)
== END ==
LOC: M LABDRWAD 12:16
PROVIDERS: ATTEND Nurse Practitioner Family
DX: I10 Essential (primary) hypertension (principal)

== ENCOUNTER → 2017-04-08 | Outpatient (REF) | payer MEDICARE ==
[2017-04-08 13:18] LABS: CALCIUM LEVEL 8.9 MG/DL (8.8-10.2); CREATININE FOR GFR 1.59 MG/DL (0.70-1.30); GLOMERULAR FILTRATION RATE 43.9 (>35); POTASSIUM SERUM 4.7 MEQ/L (3.5-5.1)
== END ==
LOC: M LABDRWAD 12:07
PROVIDERS: ATTEND Nurse Practitioner Family
DX: I10 Essential (primary) hypertension (principal)

== ENCOUNTER → 2017-04-22 | Outpatient (REF) | payer MEDICARE ==
[2017-04-22 13:37] LABS: CALCIUM LEVEL 8.2 MG/DL (8.8-10.2); CREATININE FOR GFR 1.59 MG/DL (0.70-1.30); GLOMERULAR FILTRATION RATE 43.9 (>35); POTASSIUM SERUM 4.8 MEQ/L (3.5-5.1)
== END ==
LOC: M LABDRWAD 12:25 → M LABDRAW1 12:25
PROVIDERS: ATTEND Nurse Practitioner Family
DX: I10 Essential (primary) hypertension (principal)

== ENCOUNTER 2017-05-10 10:29 | Emergency (ER) | payer MEDICARE | END 2017-05-10 11:19 | disposition home or self-care (01) | LOC: M ED 10:29 | DX: L50.9 Urticaria, unspecified (principal); I11.0 Hypertensive heart disease with heart failure; I50.9 Heart failure, unspecified; E78.5 Hyperlipidemia, unspecified; K21.9 Gastro-esophageal reflux disease without esophagitis; I25.2 Old myocardial infarction; R41.3 Other amnesia; Z79.01 Long term (current) use of anticoagulants; Z79.899 Other long term (current) drug therapy; Z85.038 Personal history of other malignant neoplasm of large intestine; Z98.0 Intestinal bypass and anastomosis status; Z98.890 Other specified postprocedural states; Z95.5 Presence of coronary angioplasty implant and graft | CPT/HCPCS: 99282 ==

== ENCOUNTER → 2017-05-20 | Outpatient (CLI) | payer MEDICARE ==
[2017-05-20 18:41] LABS: ALBUMIN 3.3 GM/DL (3.2-5.2); ALKALINE PHOSPHATASE 86 U/L (45-117); ALT/SGPT 23 U/L (12-78); ANION GAP 8 MEQ/L (8-16); AST/SGOT 15 U/L (7-37); BILIRUBIN,TOTAL 0.3 MG/DL (0.2-1.0); BLOOD UREA NITROGEN 37 MG/DL (7-18); CALCIUM LEVEL 8.1 MG/DL (8.8-10.2); CARBON DIOXIDE LEVEL 33 MEQ/L (21-32); CHLORIDE LEVEL 97 MEQ/L (98-107); CREATININE FOR GFR 1.61 MG/DL (0.70-1.30); GLOMERULAR FILTRATION RATE 43.2 (>35); GLUCOSE, FASTING 102 MG/DL (83-110); POTASSIUM SERUM 4.3 MEQ/L (3.5-5.1); SODIUM LEVEL 138 MEQ/L (136-145); TOTAL PROTEIN 6.3 GM/DL (6.4-8.2)
== END ==
LOC: M WUC 11:22
DX: I10 Essential (primary) hypertension (principal)
CPT/HCPCS: 80053

== ENCOUNTER → 2017-06-28 | Outpatient (REF) | payer MEDICARE ==
[2017-06-28 19:51] LABS: BASO # 0.1 10^3/uL (0.0-0.2); BASO % 0.4 % (0.0-1.0); EOS # 0.6 10^3/uL (0.0-0.50); EOS % 5.5 % (0.0-3.0); HEMATOCRIT 33.1 % (42.0-52.0); HEMOGLOBIN 10.7 g/dl (14.0-18.0); IMMATURE GRANULOCYTE % 1.4 % (0-3.0); LYMPH % 8.3 % (24.0-44.0); MEAN CORPUSCULAR HEMOGLOBIN 31.1 pg (27.0-33.0); MEAN CORPUSCULAR HGB CONC 32.3 g/dl (32.0-36.5); MEAN CORPUSCULAR VOLUME 96.2 fl (80.0-96.0); MONO # 0.9 10^3/uL (0.0-0.8); MONO % 7.9 % (0.0-5.0); NEUTROPHILS # 8.7 10^3/uL (1.8-7.7); NEUTROPHILS % 76.5 % (36.0-66.0); PLATELET COUNT, AUTOMATED 329 10^3/uL (150-450); RED BLOOD COUNT 3.44 10^6/uL (4.30-6.10); RED CELL DISTRIBUTION WIDTH 14.8 % (11.5-14.5); WHITE BLOOD COUNT 11.4 10^3/uL (4.0-10.0)
[2017-06-28 20:05] LABS: ANION GAP 9 MEQ/L (8-16); BLOOD UREA NITROGEN 30 MG/DL (7-18); CALCIUM LEVEL 8.3 MG/DL (8.8-10.2); CARBON DIOXIDE LEVEL 31 MEQ/L (21-32); CHLORIDE LEVEL 97 MEQ/L (98-107); CREATININE FOR GFR 1.84 MG/DL (0.70-1.30); GLOMERULAR FILTRATION RATE 37.1 (>35); GLUCOSE, FASTING 127 MG/DL (70-100); POTASSIUM SERUM 4.7 MEQ/L (3.5-5.1); SODIUM LEVEL 137 MEQ/L (136-145)
== END ==
LOC: M LABDRWAD 19:35
DX: I10 Essential (primary) hypertension (principal)
CPT/HCPCS: 80048

== ENCOUNTER 2017-09-11 10:22 | Emergency (ER) | payer MEDICARE ==
[2017-09-11 11:15] LABS: HEMATOCRIT 32.3 % (42.0-52.0); HEMOGLOBIN 10.6 g/dl (13.5-17.5); MEAN CORPUSCULAR HEMOGLOBIN 30.2 pg (27.0-33.0); MEAN CORPUSCULAR HGB CONC 32.8 g/dl (32.0-36.5); PLATELET COUNT, AUTOMATED 313 10^3/uL (150-450); RED BLOOD COUNT 3.51 10^6/uL (4.30-6.10); RED CELL DISTRIBUTION WIDTH 14.2 % (11.5-14.5); WHITE BLOOD COUNT 9.5 10^3/uL (4.0-10.0)
[2017-09-11 11:34] LABS: ANION GAP 5 MEQ/L (8-16); BLOOD UREA NITROGEN 33 MG/DL (7-18); CALCIUM LEVEL 8.3 MG/DL (8.8-10.2); CARBON DIOXIDE LEVEL 29 MEQ/L (21-32); CHLORIDE LEVEL 99 MEQ/L (98-107); CREATININE FOR GFR 1.97 MG/DL (0.70-1.30); GLOMERULAR FILTRATION RATE 34.3 (>35); GLUCOSE, FASTING 111 MG/DL (70-100); POTASSIUM SERUM 4.3 MEQ/L (3.5-5.1); SODIUM LEVEL 133 MEQ/L (136-145)
[2017-09-11 11:38] LABS: ERYTHROCYTE SEDIMENTATION RATE 73 mm/hr (0-30)
== END 2017-09-11 12:30 | disposition home or self-care (01) ==
LOC: M ED 10:22
DX: L30.9 Dermatitis, unspecified (principal); I50.9 Heart failure, unspecified; I25.2 Old myocardial infarction; I10 Essential (primary) hypertension; E78.00 Pure hypercholesterolemia, unspecified; Z85.51 Personal history of malignant neoplasm of bladder; Z95.5 Presence of coronary angioplasty implant and graft; Z87.891 Personal history of nicotine dependence; Z79.899 Other long term (current) drug therapy
CPT/HCPCS: 80048

== ENCOUNTER 2017-09-18 13:46 | Emergency (ER) | payer MEDICARE | END 2017-09-18 15:52 | disposition home or self-care (01) | LOC: M ED 13:46 | DX: S01.01XA Laceration without foreign body of scalp, initial encounter (principal); S60.419A Abrasion of unspecified finger, initial encounter; S60.511A Abrasion of right hand, initial encounter; S60.512A Abrasion of left hand, initial encounter; W01.10XA Fall on same level from slipping, tripping and stumbling with subsequent striking against unspecified object, initial encounter; Y92.512 Supermarket, store or market as the place of occurrence of the external cause; Y93.9 Activity, unspecified; Y99.9 Unspecified external cause status; I25.10 Atherosclerotic heart disease of native coronary artery without angina pectoris; Z95.5 Presence of coronary angioplasty implant and graft; I10 Essential (primary) hypertension; K21.9 Gastro-esophageal reflux disease without esophagitis; G47.30 Sleep apnea, unspecified; I50.9 Heart failure, unspecified; I87.2 Venous insufficiency (chronic) (peripheral); Z79.899 Other long term (current) drug therapy | CPT/HCPCS: 70450 ==

== ENCOUNTER 2017-10-28 09:43 | Emergency (ER) | payer MEDICARE | END 2017-10-28 13:45 | disposition home or self-care (01) | LOC: M ED 09:43 | DX: S01.01XA Laceration without foreign body of scalp, initial encounter (principal); W19.XXXA Unspecified fall, initial encounter; Y92.099 Unspecified place in other non-institutional residence as the place of occurrence of the external cause; Y93.9 Activity, unspecified; Y99.9 Unspecified external cause status; I50.9 Heart failure, unspecified; Z87.440 Personal history of urinary (tract) infections; K21.9 Gastro-esophageal reflux disease without esophagitis; G47.30 Sleep apnea, unspecified; I10 Essential (primary) hypertension; Z95.5 Presence of coronary angioplasty implant and graft; Z85.51 Personal history of malignant neoplasm of bladder; Z85.038 Personal history of other malignant neoplasm of large intestine; Z79.899 Other long term (current) drug therapy | CPT/HCPCS: 70450 ==

== ENCOUNTER 2017-11-22 10:52 | Inpatient (IN) | payer MEDICARE ==
[2017-11-22 12:24] LABS: BASO % 0.5 % (0.0-1.0); EOS # 0.1 10^3/uL (0.0-0.50); EOS % 1.1 % (0.0-3.0); HEMATOCRIT 28.4 % (42.0-52.0); HEMOGLOBIN 8.9 g/dl (13.5-17.5); LYMPH # 0.7 10^3/uL (1.5-4.5); LYMPH % 10.5 % (24.0-44.0); MEAN CORPUSCULAR HEMOGLOBIN 29.9 pg (27.0-33.0); MEAN CORPUSCULAR HGB CONC 31.3 g/dl (32.0-36.5); MEAN CORPUSCULAR VOLUME 95.3 fl (80.0-96.0); MONO # 0.6 10^3/uL (0.0-0.8); NEUTROPHILS # 4.9 10^3/uL (1.8-7.7); NEUTROPHILS % 77.9 % (36.0-66.0); PLATELET COUNT, AUTOMATED 226 10^3/uL (150-450); RED BLOOD COUNT 2.98 10^6/uL (4.30-6.10); RED CELL DISTRIBUTION WIDTH 15.8 % (11.5-14.5); WHITE BLOOD COUNT 6.3 10^3/uL (4.0-10.0)
[2017-11-22 13:24] LABS: LACTIC ACID SEPSIS PROTOCOL 1.1 MMOL/L (0.4-2.0)
[2017-11-22 13:27] LABS: ALBUMIN 2.4 GM/DL (3.2-5.2); ALBUMIN/GLOBULIN RATIO 0.59 (1.00-1.93); ALKALINE PHOSPHATASE 99 U/L (45-117); ALT/SGPT 20 U/L (12-78); AMYLASE 24 U/L (25-115); ANION GAP 6 MEQ/L (8-16); AST/SGOT 18 U/L (7-37); BILIRUBIN,DIRECT 0.2 MG/DL (0.0-0.2); BILIRUBIN,TOTAL 0.4 MG/DL (0.2-1.0); BLOOD UREA NITROGEN 23 MG/DL (7-18); CALCIUM LEVEL 8.3 MG/DL (8.8-10.2); CARBON DIOXIDE LEVEL 30 MEQ/L (21-32); CHLORIDE LEVEL 106 MEQ/L (98-107); CPK CREATINE PHOSPHOKINASE 107 U/L (39-308); CREATININE FOR GFR 1.35 MG/DL (0.70-1.30); GLUCOSE, FASTING 92 MG/DL (70-100); LIPASE 68 U/L (73-393); POTASSIUM SERUM 3.8 MEQ/L (3.5-5.1); SODIUM LEVEL 142 MEQ/L (136-145); TOTAL PROTEIN 6.5 GM/DL (6.4-8.2); TROPONIN I 0.06 NG/ML (< 0.10)
[2017-11-22 13:28] LABS: CK-MB VALUE MASS 2.3 NG/ML (<3.6); MB/CK RELATIVE INDEX 2.14 (< OR =4)
[2017-11-22 14:53] LABS: INR 1.16
[2017-11-22 14:54] LABS: PARTIAL THROMBOPLASTIN TIME 53.2 SECONDS (25.4-37.6)
[2017-11-22] MEDS ORDERED: ACETAMINOPHEN TAB 650MG DOSE (2X325MG) PO (16:15)
[2017-11-22] MEDS ORDERED: ONDANSETRON 4 MG TAB (S0181) PO (16:15)
[2017-11-22 19:21] LABS: CPK CREATINE PHOSPHOKINASE 125 U/L (39-308); TROPONIN I 0.04 NG/ML (< 0.10)
[2017-11-22] MEDS: TETANUS/DIPHTHERIA TOX ADSORB ADULT 0.5ML SYR/VIAL (90714) IM (20:30)
[2017-11-22] MEDS: CLOPIDOGREL 75 MG TAB PO (23:31)
[2017-11-22] MEDS: CARVedilol 3.125 MG TAB PO (23:31)
[2017-11-22] MEDS: HEPARIN SOD (PORCINE) 5000 UNITS/ML VIAL SQ (23:32)
[2017-11-22] MEDS: SIMVASTATIN 40 MG TAB PO (23:32)
[2017-11-23] MEDS: EUCERIN 120GM CREAM TOP (00:30)
[2017-11-23 03:13] LABS: BASO % 0.4 % (0.0-1.0); EOS # 0.4 10^3/uL (0.0-0.50); EOS % 5.5 % (0.0-3.0); HEMATOCRIT 28.8 % (42.0-52.0); IMMATURE GRANULOCYTE % 0.5 % (0-3.0); LYMPH # 0.8 10^3/uL (1.5-4.5); LYMPH % 9.8 % (24.0-44.0); MEAN CORPUSCULAR HGB CONC 31.3 g/dl (32.0-36.5); MONO # 0.7 10^3/uL (0.0-0.8); MONO % 8.5 % (0.0-5.0); NEUTROPHILS # 5.8 10^3/uL (1.8-7.7); NEUTROPHILS % 75.3 % (36.0-66.0); PLATELET COUNT, AUTOMATED 242 10^3/uL (150-450); RED CELL DISTRIBUTION WIDTH 15.8 % (11.5-14.5); WHITE BLOOD COUNT 7.7 10^3/uL (4.0-10.0)
[2017-11-23 03:25] LABS: ANION GAP 6 MEQ/L (8-16); BLOOD UREA NITROGEN 20 MG/DL (7-18); CALCIUM LEVEL 8.1 MG/DL (8.8-10.2); CARBON DIOXIDE LEVEL 29 MEQ/L (21-32); CHLORIDE LEVEL 105 MEQ/L (98-107); CREATININE FOR GFR 1.19 MG/DL (0.70-1.30); FERRITIN 162 NG/ML (26-388); GLOMERULAR FILTRATION RATE > 60.0 (>35); GLUCOSE, FASTING 94 MG/DL (70-100); IRON (FE) 41 UG/DL (65-175); MAGNESIUM LEVEL 2.3 MG/DL (1.8-2.4); PERCENT SATURATION 19.4 % (19.7-50.0); SODIUM LEVEL 140 MEQ/L (136-145); TOTAL IRON BINDING CAPACITY 211 UG/DL (250-450)
[2017-11-23 03:27] LABS: CPK CREATINE PHOSPHOKINASE 111 U/L (39-308); TROPONIN I 0.04 NG/ML (< 0.10)
[2017-11-23 03:28] LABS: CK-MB VALUE MASS 1.7 NG/ML (<3.6); MB/CK RELATIVE INDEX 1.53 (< OR =4)
[2017-11-23] MEDS: DESLORATADINE 5 MG TAB (CLARINEX) PO ×2 (09:00→09:05)
[2017-11-23] MEDS: FAMOTIDINE 20 MG TAB PO ×2 (09:00→09:06)
[2017-11-23] MEDS: FUROSEMIDE 80 MG TAB PO (09:05)
[2017-11-23] MEDS: CARVedilol 3.125 MG TAB PO ×2 (09:08→21:36)
[2017-11-23] MEDS: HEPARIN SOD (PORCINE) 5000 UNITS/ML VIAL SQ ×2 (09:08→20:17)
[2017-11-23 11:36] LABS: CK-MB VALUE MASS 1.3 NG/ML (<3.6); CPK CREATINE PHOSPHOKINASE 92 U/L (39-308); MB/CK RELATIVE INDEX 1.41 (< OR =4); TROPONIN I 0.04 NG/ML (< 0.10)
[2017-11-23 13:28] LABS: KETONE, URINE AUTO RFX NEGATIVE (NEGATIVE); LEUKOCYTE ESTERASE UR AUTO RFX NEGATIVE (NEGATIVE); MUCUS, URINE RFX SMALL (NEGATIVE); NITRITE, URINE AUTO RFX NEGATIVE (NEGATIVE); RBC, URINE AUTO RFX 0 /HPF (0-3); SPECIFIC GRAVITY UR AUTO RFX 1.008 (1.002-1.035); SQUAM EPITHELIAL CELL UR AURFX 0 /HPF (0-6); WBC, URINE AUTO RFX 1 /HPF (0-3)
[2017-11-23] MEDS: CLOPIDOGREL 75 MG TAB PO (20:17)
[2017-11-23] MEDS: SIMVASTATIN 40 MG TAB PO (20:18)
[2017-11-24 06:37] LABS: BASO % 0.4 % (0.0-1.0); EOS # 0.4 10^3/uL (0.0-0.50); EOS % 7.5 % (0.0-3.0); HEMOGLOBIN 8.1 g/dl (13.5-17.5); IMMATURE GRANULOCYTE % 0.9 % (0-3.0); LYMPH # 0.7 10^3/uL (1.5-4.5); LYMPH % 12.3 % (24.0-44.0); MEAN CORPUSCULAR HEMOGLOBIN 29.5 pg (27.0-33.0); MEAN CORPUSCULAR HGB CONC 31.2 g/dl (32.0-36.5); MEAN CORPUSCULAR VOLUME 94.5 fl (80.0-96.0); MONO # 0.5 10^3/uL (0.0-0.8); MONO % 9.9 % (0.0-5.0); NEUTROPHILS # 3.8 10^3/uL (1.8-7.7); PLATELET COUNT, AUTOMATED 200 10^3/uL (150-450); RED BLOOD COUNT 2.75 10^6/uL (4.30-6.10); RED CELL DISTRIBUTION WIDTH 15.4 % (11.5-14.5); WHITE BLOOD COUNT 5.5 10^3/uL (4.0-10.0)
[2017-11-24 06:52] LABS: ANION GAP 6 MEQ/L (8-16); BLOOD UREA NITROGEN 22 MG/DL (7-18); CALCIUM LEVEL 7.8 MG/DL (8.8-10.2); CARBON DIOXIDE LEVEL 31 MEQ/L (21-32); CHLORIDE LEVEL 107 MEQ/L (98-107); CREATININE FOR GFR 1.43 MG/DL (0.70-1.30); GLOMERULAR FILTRATION RATE 49.6 (>35); GLUCOSE, FASTING 88 MG/DL (70-100); MAGNESIUM LEVEL 2.2 MG/DL (1.8-2.4); SODIUM LEVEL 144 MEQ/L (136-145)
[2017-11-24 09:05] LABS: TRANSFERRIN 159 mg/dL (200-370)
[2017-11-24] MEDS: HEPARIN SOD (PORCINE) 5000 UNITS/ML VIAL SQ ×2 (09:13→20:22)
[2017-11-24] MEDS: DESLORATADINE 5 MG TAB (CLARINEX) PO (09:13)
[2017-11-24] MEDS: FAMOTIDINE 20 MG TAB PO (09:14)
[2017-11-24] MEDS: CARVedilol 3.125 MG TAB PO (09:14)
[2017-11-24] MEDS: FUROSEMIDE 80 MG TAB PO (09:14)
[2017-11-24] MEDS: POLYVINYL ALCOHOL OPHTH SOLN 15 ML(LIQUITEARS) OU ×3 (15:04→20:23)
[2017-11-24] MEDS: SIMVASTATIN 40 MG TAB PO (20:22)
[2017-11-24] MEDS: CLOPIDOGREL 75 MG TAB PO (20:22)
[2017-11-25] MEDS: EUCERIN 120GM CREAM TOP (03:00)
[2017-11-25 07:02] LABS: BASO % 0.4 % (0.0-1.0); EOS # 0.5 10^3/uL (0.0-0.50); EOS % 8.3 % (0.0-3.0); HEMATOCRIT 25.8 % (42.0-52.0); IMMATURE GRANULOCYTE % 0.9 % (0-3.0); LYMPH # 0.8 10^3/uL (1.5-4.5); LYMPH % 15.2 % (24.0-44.0); MEAN CORPUSCULAR HEMOGLOBIN 29.4 pg (27.0-33.0); MEAN CORPUSCULAR VOLUME 94.9 fl (80.0-96.0); MONO # 0.5 10^3/uL (0.0-0.8); MONO % 9.6 % (0.0-5.0); NEUTROPHILS # 3.5 10^3/uL (1.8-7.7); NEUTROPHILS % 65.6 % (36.0-66.0); PLATELET COUNT, AUTOMATED 211 10^3/uL (150-450); RED BLOOD COUNT 2.72 10^6/uL (4.30-6.10); RED CELL DISTRIBUTION WIDTH 15.5 % (11.5-14.5); WHITE BLOOD COUNT 5.4 10^3/uL (4.0-10.0)
[2017-11-25 07:15] LABS: ANION GAP 5 MEQ/L (8-16); BLOOD UREA NITROGEN 22 MG/DL (7-18); CALCIUM LEVEL 7.8 MG/DL (8.8-10.2); CARBON DIOXIDE LEVEL 32 MEQ/L (21-32); CHLORIDE LEVEL 105 MEQ/L (98-107); CREATININE FOR GFR 1.41 MG/DL (0.70-1.30); GLOMERULAR FILTRATION RATE 50.4 (>35); GLUCOSE, FASTING 87 MG/DL (70-100); MAGNESIUM LEVEL 2.1 MG/DL (1.8-2.4); POTASSIUM SERUM 3.7 MEQ/L (3.5-5.1); SODIUM LEVEL 142 MEQ/L (136-145)
[2017-11-25] MEDS: DESLORATADINE 5 MG TAB (CLARINEX) PO (08:33)
[2017-11-25] MEDS: POLYVINYL ALCOHOL OPHTH SOLN 15 ML(LIQUITEARS) OU ×4 (08:33→20:11)
[2017-11-25] MEDS: FAMOTIDINE 20 MG TAB PO (08:33)
[2017-11-25] MEDS: HEPARIN SOD (PORCINE) 5000 UNITS/ML VIAL SQ ×2 (08:33→20:11)
[2017-11-25] MEDS ORDERED: CARVedilol 3.125 MG TAB PO (09:00)
[2017-11-25 12:43] LABS: VITAMIN B12 LEVEL 384 PG/ML (247-911)
[2017-11-25 12:44] LABS: FOLATE 17.4 NG/ML (>5.4)
[2017-11-25] MEDS: NS 1,000 ML IV (14:01)
[2017-11-25] MEDS: HALOPERIDOL 1 MG TAB PO (17:29)
[2017-11-25] MEDS: SIMVASTATIN 40 MG TAB PO (20:11)
[2017-11-25] MEDS: CLOPIDOGREL 75 MG TAB PO (20:11)
[2017-11-25] MEDS: diphenhydrAMINE 25 MG CAP PO (22:26)
[2017-11-26] MEDS: hydrOXYzine 25 MG TAB PO (03:11)
[2017-11-26 06:57] LABS: BASO % 0.4 % (0.0-1.0); EOS # 0.5 10^3/uL (0.0-0.50); EOS % 8.6 % (0.0-3.0); IMMATURE GRANULOCYTE % 1.3 % (0-3.0); LYMPH # 0.8 10^3/uL (1.5-4.5); LYMPH % 13.6 % (24.0-44.0); MEAN CORPUSCULAR HEMOGLOBIN 29.6 pg (27.0-33.0); MEAN CORPUSCULAR VOLUME 92.6 fl (80.0-96.0); MONO # 0.5 10^3/uL (0.0-0.8); MONO % 9.3 % (0.0-5.0); NEUTROPHILS # 3.7 10^3/uL (1.8-7.7); NEUTROPHILS % 66.8 % (36.0-66.0); PLATELET COUNT, AUTOMATED 220 10^3/uL (150-450); RED CELL DISTRIBUTION WIDTH 15.5 % (11.5-14.5); WHITE BLOOD COUNT 5.6 10^3/uL (4.0-10.0)
[2017-11-26 07:20] LABS: ANION GAP 7 MEQ/L (8-16); BLOOD UREA NITROGEN 19 MG/DL (7-18); CALCIUM LEVEL 7.9 MG/DL (8.8-10.2); CARBON DIOXIDE LEVEL 29 MEQ/L (21-32); CHLORIDE LEVEL 103 MEQ/L (98-107); CREATININE FOR GFR 1.09 MG/DL (0.70-1.30); GLOMERULAR FILTRATION RATE > 60.0 (>35); GLUCOSE, FASTING 89 MG/DL (70-100); POTASSIUM SERUM 3.8 MEQ/L (3.5-5.1); SODIUM LEVEL 139 MEQ/L (136-145)
[2017-11-26] MEDS: FAMOTIDINE 20 MG TAB PO (08:32)
[2017-11-26] MEDS: DESLORATADINE 5 MG TAB (CLARINEX) PO (08:32)
[2017-11-26] MEDS: HEPARIN SOD (PORCINE) 5000 UNITS/ML VIAL SQ ×2 (08:33→20:17)
[2017-11-26] MEDS: POLYVINYL ALCOHOL OPHTH SOLN 15 ML(LIQUITEARS) OU ×4 (08:34→20:18)
[2017-11-26] MEDS: SIMVASTATIN 40 MG TAB PO (20:17)
[2017-11-26] MEDS: SENOKOT S TAB PO (20:17)
[2017-11-26] MEDS: CLOPIDOGREL 75 MG TAB PO (20:17)
[2017-11-26] MEDS: FERROUS SULFATE 325MG TAB PO (20:17)
[2017-11-27] MEDS: HALOPERIDOL 1 MG TAB PO (01:40)
[2017-11-27 06:19] LABS: BASO % 0.4 % (0.0-1.0); EOS # 0.5 10^3/uL (0.0-0.50); EOS % 8.3 % (0.0-3.0); HEMATOCRIT 26.9 % (42.0-52.0); HEMOGLOBIN 8.5 g/dl (13.5-17.5); IMMATURE GRANULOCYTE % 1.5 % (0-3.0); LYMPH # 0.8 10^3/uL (1.5-4.5); LYMPH % 13.8 % (24.0-44.0); MEAN CORPUSCULAR HGB CONC 31.6 g/dl (32.0-36.5); MEAN CORPUSCULAR VOLUME 95.1 fl (80.0-96.0); MONO # 0.5 10^3/uL (0.0-0.8); MONO % 8.8 % (0.0-5.0); NEUTROPHILS # 3.7 10^3/uL (1.8-7.7); NEUTROPHILS % 67.2 % (36.0-66.0); PLATELET COUNT, AUTOMATED 214 10^3/uL (150-450); RED BLOOD COUNT 2.83 10^6/uL (4.30-6.10); RED CELL DISTRIBUTION WIDTH 15.6 % (11.5-14.5); WHITE BLOOD COUNT 5.4 10^3/uL (4.0-10.0)
[2017-11-27 06:33] LABS: ANION GAP 7 MEQ/L (8-16); BLOOD UREA NITROGEN 18 MG/DL (7-18); CALCIUM LEVEL 8.1 MG/DL (8.8-10.2); CARBON DIOXIDE LEVEL 28 MEQ/L (21-32); CHLORIDE LEVEL 105 MEQ/L (98-107); CREATININE FOR GFR 1.04 MG/DL (0.70-1.30); GLOMERULAR FILTRATION RATE > 60.0 (>35); GLUCOSE, FASTING 89 MG/DL (70-100); MAGNESIUM LEVEL 2.1 MG/DL (1.8-2.4); POTASSIUM SERUM 3.9 MEQ/L (3.5-5.1); SODIUM LEVEL 140 MEQ/L (136-145)
[2017-11-27] MEDS: DESLORATADINE 5 MG TAB (CLARINEX) PO (09:23)
[2017-11-27] MEDS: FERROUS SULFATE 325MG TAB PO (09:23)
[2017-11-27] MEDS: POLYVINYL ALCOHOL OPHTH SOLN 15 ML(LIQUITEARS) OU (09:23)
[2017-11-27] MEDS: SENOKOT S TAB PO (09:23)
[2017-11-27] MEDS: FAMOTIDINE 20 MG TAB PO (09:23)
[2017-11-27] MEDS: HEPARIN SOD (PORCINE) 5000 UNITS/ML VIAL SQ (09:23)
== END 2017-11-27 13:51 | disposition home health service (06) | DRG 92 ==
LOC: M ED 10:52 → M ED INP 16:17 → M MSPAV 21:21
DX: R29.6 Repeated falls (principal); I13.0 Hypertensive heart and chronic kidney disease with heart failure and stage 1 through stage 4 chronic kidney disease, or unspecified chronic kidney disease; I50.32 Chronic diastolic (congestive) heart failure; F03.90 Unspecified dementia, unspecified severity, without behavioral disturbance, psychotic disturbance, mood disturbance, and anxiety; I25.10 Atherosclerotic heart disease of native coronary artery without angina pectoris; E78.5 Hyperlipidemia, unspecified; N18.3 Chronic kidney disease, stage 3 (moderate); I89.0 Lymphedema, not elsewhere classified; G47.33 Obstructive sleep apnea (adult) (pediatric); Z66 Do not resuscitate; R41.0 Disorientation, unspecified; D64.9 Anemia, unspecified; K21.9 Gastro-esophageal reflux disease without esophagitis; I95.1 Orthostatic hypotension; H91.93 Unspecified hearing loss, bilateral; I87.2 Venous insufficiency (chronic) (peripheral); Z85.51 Personal history of malignant neoplasm of bladder; Z85.038 Personal history of other malignant neoplasm of large intestine; Z90.49 Acquired absence of other specified parts of digestive tract; Z95.5 Presence of coronary angioplasty implant and graft; Z79.899 Other long term (current) drug therapy; Z79.02 Long term (current) use of antithrombotics/antiplatelets